=== PATIENT | male | born 1955 | race Hispanic/Latino ===

== ENCOUNTER 2020-12-19 07:22 | Observation (INO) | payer OTHER ==
[~2020-12-19] VITALS: Ht 152.4 cm; Wt 49.0 kg
--- NOTE | 2020-12-19 07:25 | NUR ---
AMBULATED TO ROOM INDEP IN STABLE CONDITION FOR BEDSIDE TRIAGE
[2020-12-19] MEDS ORDERED: TRAZODONE XX (07:53)
[2020-12-19] MEDS ORDERED: BUSPAR5 M1 PO (07:53)
[2020-12-19] MEDS ORDERED: VENLAFAXINE HCL75 M1 PO (07:53)
[2020-12-19] MEDS ORDERED: METFORMIN500 M2 PO (07:54)
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
[2020-12-19 08:19] LABS: HEMATOCRIT 39.6 % (39.0-50.0); HEMOGLOBIN 13.3 g/dl (14.0-18.0); IMMATURE GRANULOCYTES 0.1 % (0.0-5.0); MEAN CELL VOLUME 97.5 fL CALC (80.0-100.0); MEAN CORPUSCULAR HGB 32.8 pG CALC (26.0-32.0); MEAN CORPUSCULAR HGB CONC 33.6 g/dL CAL (32.0-36.0); NEUT# 7.36 thou/uL (1.82-7.42); RED BLOOD COUNT 4.06 mill/uL (4.70-6.10); RED CELL DISTRI WIDTH 11.8 % (11.5-15.5)
[2020-12-19 08:22] LABS: URINE BLOOD DIPSTICK TRACE-INTACT (NEGATIVE); URINE COLOR YELLOW; URINE GLUCOSE - DIPSTICK NEGATIVE (NEGATIVE); URINE KETONE 15 mg/dL (NEGATIVE); URINE LEUK ESTERASE NEGATIVE (NEGATIVE); URINE PH 5.5 (4.5-8.0); URINE PROTEIN - DIPSTICK NEGATIVE (NEG-TRACE); URINE SPECIFIC GRAVITY >=1.030; URINE UROBILINOGEN - DIPSTICK 0.2 E.U./dL (0.2)
[2020-12-19 08:23] LABS: URINE BILIRUBIN - DIPSTICK NEGATIVE (NEGATIVE); URINE NITRITE - DIPSTICK NEGATIVE (Negative)
[2020-12-19 08:37] LABS: ALBUMIN 4.4 g/dL (3.2-5.0); ALKALINE PHOSPHATASE 63 u/l (38-126); ANION GAP 21 (6-22 (CALC)); BILIRUBIN, TOTAL 1.9 mg/dL (0.0-1.4); BUN 64 mg/dL (8-23); BUN/CREATININE RATIO 49 (12-20 (CALC)); CARBON DIOXIDE 23 mmol/l (22-30); CHLORIDE 94 mmol/l (95-108); CREATININE 1.3 mg/dL (0.7-1.3); GFR 55 ML/MIN (>=60 (CALC)); GFR FOR AFR.AMER. > 60 ML/MIN (>=60 (CALC)); POTASSIUM 3.9 mmol/l (3.5-5.1); SGOT/AST 202 u/l (19-48); SODIUM 133 mmol/l (137-146)
--- NOTE | 2020-12-19 09:00 | NUR ---
PT RESTING WITH EYES CLOSED
[2020-12-19 09:05] LABS: MYOGLOBIN 1773 ng/mL (0 - 121)
--- NOTE | 2020-12-19 10:01 | NUR ---
PT UPDATED ON PENDING ADMISSION
--- NOTE | 2020-12-19 10:20 | NUR ---
GAVE REPORT TO THOMAS
[2020-12-19 13:00] VITALS: BP 112/56
--- NOTE | 2020-12-19 13:00 | NUR ---
PATIENT RECEIVED FROM ED VIA STRETCHER AT THIS TIME. PATIENT IS ALERT AND ORIENTED X 3. PATIENT STATES "I CAN READ AND SPEAK [place] AND I PRAY IN [place]". PATIENT STATED HE HAS BEEN WALKING FOR MANY MILES AND STATED A SENIOR SUPPORT ENGINEER BROUGHT HIM TO THE ED THIS MORNING. PATIENT DID STATE HE IS A [employer] AND TAKES METFORMIN WHEN HE BUYS IT. PATIENT AT THIS TIME IS ALERT AND ORIENTED TO DAY AND TIME AND PLACE. PATIENT DOES PRESENT WITH UNOPEN SORES ON BILATERAL FEET (SEE PHOTOS). TONNAGE COMPILATION CLERK DONE AT THIS TIME. LUNG GALLEGOS ARE CLEAR AND BOWEL SOUNDS ARE PRESENT. SKIN IS WARM AND DRY. SIDERAILS ARE UP AND ROOM ORIENTATION WAS GIVEN AT THIS TIME. PATIENT IS REQUESTING TO SEE CASE MANAGEMENT AT THIS TIME. PATIENT STATES "I NEED THEM TO FIND ME AN A PLACE TO PATIENT HAS TELE ONE AND IS BEING MONITORED BY ED. LIVE". PATIENT ALSO STATED THAT HE WAS ADMITTED TO [facility] AND THAT AFTER ONE DAY THE DISCHARGED HIM. PATIENT DENIES ANY PAIN AND DID REQUEST TO TAKE A SHOWER AT THIS TIME. SEE RN INTERVENTIONS.
--- NOTE | 2020-12-19 16:06 | NUR ---
PATIENT RESTING IN BED AT THIS TIME. SIDERAILS UP CALL LIGHT NEAR. PATIENT DENIES ANY NEEDS OR PAIN. TELE MONITOR ON AND BEING MONITORED BY ED.
[2020-12-19 19:26] VITALS: BP 106/56
--- NOTE | 2020-12-19 20:20 | NUR ---
Received Pt in bed awake stable and resting. pt alert but confused pt state he has bilateral foot pain med given and tolerated.Pt been asses by RN and pt stable but with his conversation pt seems confused. meds given tolerated pt in bed resting.
[2020-12-19 23:54] VITALS: BP 118/66
--- NOTE | 2020-12-20 00:10 | NUR ---
PT IN BED RESTING AT THE MOMENT STABLE TELE REVISED AND CHARTED. WILL KEEP MONITORING PT FOR ANY CHANGES.
--- NOTE | 2020-12-20 04:05 | NUR ---
Pt in bed stable alert pt complaint about bilateral foot pain again tylenol given and tolerated. Pt in bed resting pt stated pain is getting better pt remain in bed reasting.
[2020-12-20 04:35] VITALS: BP 96/61
[2020-12-20 05:27] LABS: HEMATOCRIT 35.7 % (39.0-50.0); MEAN CELL VOLUME 98.1 fL CALC (80.0-100.0); MEAN CORPUSCULAR HGB CONC 33.6 g/dL CAL (32.0-36.0); RED BLOOD COUNT 3.64 mill/uL (4.70-6.10); RED CELL DISTRI WIDTH 12.1 % (11.5-15.5)
[2020-12-20 05:39] LABS: CHLORIDE 103 mmol/l (95-108); CPK 1349 u/l (52-200); CREATININE 0.8 mg/dL (0.7-1.3); GFR > 60 ML/MIN (>=60 (CALC)); GFR FOR AFR.AMER. > 60 ML/MIN (>=60 (CALC)); MAGNESIUM 1.8 mg/dL (1.6-2.3); POTASSIUM 3.6 mmol/l (3.5-5.1); SODIUM 134 mmol/l (137-146)
[2020-12-20 05:50] LABS: ANION GAP 7 (6-22 (CALC)); BUN 29 mg/dL (8-23); BUN/CREATININE RATIO 36 (12-20 (CALC)); CARBON DIOXIDE 28 mmol/l (22-30)
[2020-12-20 07:15] VITALS: BP 102/66
--- NOTE | 2020-12-20 07:15 | NUR ---
PATIENT UP IN ROOM WALKING AROUND HOUSEPERSON DONE AT THIS TIME. DENEIS ANY NEEDS LUNG GALLEGOS CLEAR BLISTERS ON FEET ARE DRY AND CALLOUSED. PATEINT DENIES ANY PAIN AT THIS TIME. CALL LIGHT IS WITHIN REACH.
--- NOTE | 2020-12-20 10:39 | NUR ---
PATEINT SOPHIE AT THIS TIME PATIENT VERBALIZES UNDERSTANDING OF D/C INSTRUCTIONS CAB WILL BE PROVIDER TO TAKE PATIENT TO DUPONT.
--- NOTE | 2020-12-20 11:05 | NUR ---
Discharge instructions given. Patient verbalizes understanding of same. Discharged in stable condition via Wheelchair to *Other with *Other. All belongings sent with pt. PATIENT DC TO [facility]. TAKEN VIA CAB PAID BY [facility].
== END 2020-12-20 10:59 | disposition home or self-care (01) | DRG 558 ==
LOC: ED 07:22 → ED-I 09:32 → ED 09:41 → ED-I 09:42 → MS2 09:42 → ED-I 09:42 → MS2 12:34
PROVIDERS: Emergency Medicine; Nurse Practitioner; ADMIT Internal Medicine; ATTEND Internal Medicine
DX: M62.82 Rhabdomyolysis (principal); E86.0 Dehydration; E11.9 Type 2 diabetes mellitus without complications; F43.10 Post-traumatic stress disorder, unspecified; F17.200 Nicotine dependence, unspecified, uncomplicated; Z79.84 Long term (current) use of oral hypoglycemic drugs; Z59.0 Homelessness; Z20.822 Contact with and (suspected) exposure to COVID-19
CPT/HCPCS: G0378